=== PATIENT | female | born 1940 | race Caucasian/White ===

== ENCOUNTER 2020-06-12 06:08 | Day surgery (SDC) | payer MEDICARE, BC ==
[2020-06-07 10:35] LABS: BASOPHILS % (AUTO) 0.6 % (0-1); EOSINOPHILS # (AUTO) 0.1 X10'3 (0-0.9); EOSINOPHILS % (AUTO) 1.6 % (0-6); HEMATOCRIT 40.6 % (35.0-45.0); HEMOGLOBIN 13.4 g/dl (12.0-16.0); LYMPHOCYTES # (AUTO) 2.3 X10'3 (1.1-4.8); LYMPHOCYTES % (AUTO) 35.7 % (21-51); MEAN CORPUSCULAR HEMOGLOBIN 31.4 PG (27.0-31.0); MEAN CORPUSCULAR HGB CONC 33.1 g/dL (33.0-36.5); MEAN CORPUSCULAR VOLUME 95.1 FL (78-98); MEAN PLATELET VOLUME 7.6 FL (7.4-10.4); MONOCYTES # (AUTO) 0.5 X10'3 (0-0.9); MONOCYTES % (AUTO) 7.8 % (2-12); NEUTROPHILS # (AUTO) 3.4 X10'3 (1.8-7.7); NEUTROPHILS % (AUTO) 54.3 % (42-75); PLATELET COUNT 250 X10'3 (140-440); RED BLOOD COUNT 4.27 X10'6 (4.20-5.60); RED CELL DISTRIBUTION WIDTH 12.7 % (11.5-14.5); WHITE BLOOD COUNT 6.3 X10'3 (4.5-11.0)
[2020-06-07 10:49] LABS: PARTIAL THROMBOPLASTIN TIME 26 SECONDS (22-32)
[2020-06-07 10:50] LABS: ALBUMIN 3.7 G/DL (3.4-5.0); ANION GAP 8 (8-16); BLOOD UREA NITROGEN 10 MG/DL (7-18); BUN/CREATININE RATIO 10.9 (6.6-38.0); CALCIUM 9.4 MG/DL (8.5-10.1); CHLORIDE 101 MMOL/L (99-107); CREATININE 0.92 MG/DL (0.40-0.90); GLUCOSE 87 MG/DL (70-104); POTASSIUM 3.7 MMOL/L (3.5-5.1); SODIUM 137 MMOL/L (135-145); TOTAL CARBON DIOXIDE 28.2 MMOL/L (24-32); eGFR 59 ML/MIN
[2020-06-12] VITALS (9 sets, daily range): BP systolic 86–121; BP diastolic 46–64
[~2020-06-12] VITALS: Ht 157.5 cm; Wt 55.0 kg
[2020-06-12] MEDS ORDERED: normal saline 1,000 ML IV SCH (06:45)
[2020-06-12] MEDS ORDERED: diphenhydrAMINE 25mg capsule PO PRN (06:45)
[2020-06-12] MEDS ORDERED: LORazepam 0.5 MG tablet PO PRN (06:45)
[2020-06-12] MEDS ORDERED: LIDOcaine/PRILOcaine 5gm cream TP ONE (06:45)
[2020-06-12] MEDS ORDERED: LISI40TA4 PO (07:57)
[2020-06-12] MEDS ORDERED: TRAZ-251 PO (07:57)
[2020-06-12] MEDS ORDERED: UBID50TA3 PO (07:57)
[2020-06-12] MEDS ORDERED: CHOL10006 PO (07:57)
[2020-06-12] MEDS ORDERED: ATOR80TA PO (07:57)
[2020-06-12] MEDS ORDERED: FLUO20CA39 PO (07:57)
[2020-06-12] MEDS ORDERED: HYDR12.55 PO (07:57)
[2020-06-12] MEDS ORDERED: heparin 1,000unit/ml 10ml vial 10 ML ONE (08:09)
[2020-06-12] MEDS ORDERED: midazolam 2 mg/2 ml injection ONE (08:09)
[2020-06-12] MEDS ORDERED: fentaNYL/PF 50MCG/1 ML 2ML syringe ONE (08:09)
[2020-06-12] MEDS ORDERED: verapamil 2.5 mg/ml inj IV ONE (08:09)
[2020-06-12] MEDS ORDERED: nitroGLYCERIN-Tridil 50MG/D5W 250 ML IV ONE (08:09)
[2020-06-12] MEDS ORDERED: LIDOcaine 1% (10mg/ml)w/preservative injection 20ml MDV ONE (08:09)
[2020-06-12] MEDS ORDERED: iohexol 350MG/ML 100ml bottle IV ONE (08:09)
== END 2020-06-12 12:30 | disposition home or self-care (01) ==
LOC: SSTAY O 06:08
PROVIDERS: ATTEND Student in an Organized Health Care Education/Training Program
DX: R06.02 Shortness of breath (principal); R06.00 Dyspnea, unspecified; I25.719 Atherosclerosis of autologous vein coronary artery bypass graft(s) with unspecified angina pectoris; I10 Essential (primary) hypertension; E11.9 Type 2 diabetes mellitus without complications; E78.49 Other hyperlipidemia; G47.10 Hypersomnia, unspecified; K21.9 Gastro-esophageal reflux disease without esophagitis; Z95.1 Presence of aortocoronary bypass graft; Z79.82 Long term (current) use of aspirin; Z79.899 Other long term (current) drug therapy
CPT/HCPCS: 36415; 80048; 85025; 85610; 85730; 93005; 93459; 99152; 99153; C1760; C1769; C1894; J1644; J2001; J2250; J3010; J7030; Q0163; Q9967; A4620; A5120; A6258; J3490